=== PATIENT | female | born 1930 | race Caucasian/White ===

== ENCOUNTER 2017-06-30 12:34 | Inpatient (IN) | payer MEDICARE, BC, OTHER ==
[~2017-06-30] VITALS: Ht 152.4 cm; Wt 48.1 kg
[2017-06-30 12:36] VITALS: BP 128/56
--- NOTE | 2017-06-30 12:43 | NUR ---
UPON ARRIVAL, PT SLEEPING. ABLE TO AROUSE BUT PT IMMEDIATELY FALLS BACK TO SLEEP. VITAL SIGNS STABLE.
[2017-06-30 13:12] LABS: URINE COLOR YELLOW
[2017-06-30] MEDS ORDERED: TYLENOL325 MG PER TUBE (13:13)
[2017-06-30 13:22] LABS: HEMOGLOBIN 10.7 gm/dL (12.0-15.0); MCH 28.8 pg (26.0-34.0); MCHC 33.5 g/dL (28.0-37.0); MPV 9.3 fl. (7.2-11.1); NUCLEATED RBCS 0 /100WBC; PLATELET COUNT* 190 thou/uL (150-400); RBC 3.72 mil/uL (4.20-5.00); RDW-CV 19.5 % (10.5-14.5)
[2017-06-30 13:31] LABS: URINE BILIRUBIN NEGATIVE (Negative); URINE BLOOD 2+ (Negative); URINE CLARITY CLOUDY; URINE GLUCOSE-RANDOM NEGATIVE (Negative); URINE KETONES TRACE (Negative); URINE PROTEIN 2+ (Negative); URINE UROBILINOGEN 0.2 E.U./dl (0.2-1.0)
[2017-06-30 13:33] LABS: URINE LEUKOCYTES-REFLEX 3+ (Negative); URINE NITRITE-REFLEX POSITIVE (Negative)
[2017-06-30 13:34] LABS: CALCIUM 8.6 mg/dL (8.5-10.1); CREATININE 0.8 mg/dL (0.6-1.3); POTASSIUM 3.9 mmol/L (3.5-5.1)
[2017-06-30 13:38] LABS: SQUAMOUS 0-3 Few /LPF (0-3); URINE WBC-REFLEX >25 Many /HPF (0-5); WBC CLUMPS Moderate (None Seen)
[2017-06-30 13:39] LABS: AMORPHOUS PHOSPHATES Moderate /LPF (None Seen); CASTS None Seen /LPF (None Seen); MUCUS None Seen strn/LPF (None Seen)
[2017-06-30 13:50] LABS: ALBUMIN 2.7 g/dL (3.4-5.0); TOTAL BILIRUBIN 0.5 mg/dL (<0.1-1.0); TOTAL PROTEIN 5.7 g/dL (6.4-8.2)
[2017-06-30 14:14] LABS: ABSOLUTE BASOPHILS 0.1 thou/uL (0.0-0.2); ABSOLUTE EOSINOPHILS 0.2 thou/uL (0.0-0.7); ABSOLUTE LYMPHOCYTES 0.5 thou/uL (0.8-5.3); ABSOLUTE MONOCYTES 0.8 thou/uL (0.0-1.2); ABSOLUTE NEUTROPHILS 7.4 thou/uL (1.6-8.1)
[2017-06-30 14:15] LABS: ANISOCYTOSIS 1+; HYPOCHROMASIA Occasional; PLATELET ESTIMATE ADEQUATE
[2017-06-30] MEDS ORDERED: FLUSH FLUSH (15:39)
[2017-06-30] MEDS ORDERED: GLUCERNA237 M1 PO (15:39)
[2017-06-30] MEDS ORDERED: CLARITIN10 MG PER TUBE (15:40)
[2017-06-30] MEDS ORDERED: MELATONIN1 MG PER TUBE (15:40)
[2017-06-30] MEDS ORDERED: COLACE100 MG PER TUBE (15:40)
[2017-06-30] MEDS ORDERED: SYNTHROID50 MCG PER TUBE (15:40)
[2017-06-30] MEDS ORDERED: LIORESAL 10 MG10 MG PER TUBE (15:41)
[2017-06-30] MEDS ORDERED: VIMPAT100 MG PER TUBE (15:41)
[2017-06-30] MEDS ORDERED: ATORVASTATIN CA40 MG PER TUBE (15:41)
[2017-06-30] MEDS ORDERED: SENNA8.6 MG PER TUBE (15:41)
[2017-06-30] MEDS ORDERED: PEPCID20 MG PO (15:41)
[2017-06-30] MEDS ORDERED: KEPPRA 500 MG500 M1 PER TUBE (15:42)
[2017-06-30] MEDS ORDERED: DUONEB 2.5-0.5 M3 ML INH (15:42)
[2017-06-30] MEDS ORDERED: ATIVAN0.5 MG PER TUBE (15:42)
[2017-06-30] MEDS ORDERED: COREG6.25 MG PER TUBE (15:42)
[2017-06-30] MEDS ORDERED: ENSURE ACTIVE237 ML PO (15:43)
--- NOTE | 2017-06-30 16:45 | EKG ---
[place] [address] ELECTROCARDIOGRAM REPORT Name: ARGENIS FALLON Room: [facility]#: [id number] Admission: 06/30/17 Attend Phys: Discharge: Date of : [birth year] Report #: [id number] THIS REPORT FOR: //name// [facility] ED Test Date: 2017-06-30 Test Time: 12:35:58 Pat Name: ARGENIS FALLON Department: Room: Gender: F Engagement Executive: SHYAM : 1930 Requested By: Brandon Reddy Order Number: [id number] MD: Deandre Tarango Measurements Intervals [place] Rate: 59 P: 14 WV: 171 QRS: -14 QRSD: 84 T: 14 QT: 443 QTc: 439 Interpretive Statements Sinus rhythm Abnormal R-wave progression, early transition LVH by voltage No previous ECG available for comparison Electronically Signed On 06-30-2017 16:45:19 FOURDRINIER MACHINE TENDER by Deandre Tarango [email or web address] <ELECTRONICALLY SIGNED> By: Deandre Tarango MD, [facility] 06/30/17 1645 1235 1235 Deandre Tarango MD, FACC /EPI
[2017-06-30 17:18] VITALS: BP 166/59
[2017-06-30 17:47] VITALS: BP 112/79
--- NOTE | 2017-06-30 18:43 | NUR ---
PT NOTED TO ARRIVE TO ROOM 212 @ 1747 VIA CART- ASSISTANCE REQUIRED X2 TO BED WITH SOFT RESTRAITS NOTED IN PLACE- REPORT RECIVED VIA BED SIDE FROM JAZMINE CHAVEZ IN ER- DX; METABOLIC ENCEPHALOPATHY, UTI- PT NOTED TO BE MOANING UNCOMPREHENSIVE WORDS- RESTLESS NOTED TO BE PULLING AM BANDS- PT UN ABLE TO REDIRECT- IV NOTED TO LEFT FA INTACT WITH SLIGHT BLEEDING NOTED, FLUSHING WELL WITH NS INFUSING PRESCIBED- IV REINFORCED AND WRAPPED WITH CO-BAN- BED REST IN PLACE WITH Q 2HOUR TURNS INTIATED- VS 99.2 18 112/79 93 98% ON RA- ABDOMEN SOFT/ROUND/NON-TENDER, BS ACTIVE- LLQ PEG TUBE NOTED WITH CRUSHY DRAINAGE, AREA CLEANED WITH WW, NEW 4X4 APPLIED- TRACE EDEMA NOTED TO BLE, PERIPHERAL PULSES INTACT- SUPERVISOR POWDERED SUGAR PLACED INDICATED, TRACING SR IN 70'S- CALL LIGHT AND PERSONAL BELONGINGS WITH IN REACH-BED LOCKED IN LOWEST POSITION, BED ALARM IN PLACE AND WORKING FOR PT SAFETY- HOURLY ROUNDS IN PLACE R/T SAFETY/NEEDS- ALL NEEDS MET AT THIS TIME-NANCY
[2017-06-30 20:00] VITALS: BP 188/62
--- NOTE | 2017-06-30 23:00 | NUR ---
ASSESSMENT AND VITALS COMPLETED CHARTED, VSS. BELT CLEANER IN PLACE TRACING SR. PATIENT ON ROOM AIR WITH SATS 94%. PATIENT IS DISORIENTED AND IMPULSIVE. SOFT WRIST RESTRAINTS IN PLACE PER ORDERS. PATIENT IS IN NO APPARENT PAIN. DANIELSON IN PLACE. IVF INFUSING PER ORDERS. GOAL IS TO HAVE IMPROVEMENT IN ORIENTATION AND BE ABLE TO MANAGE BEHAVIOR WITH PRN MEDICATION. CALL LIGHT WITHIN REACH
[2017-06-30 23:52] VITALS: BP 154/38
[2017-07-01 04:20] VITALS: BP 132/42
[2017-07-01 04:55] LABS: ABSOLUTE EOSINOPHILS 0.3 thou/uL (0.0-0.7); ABSOLUTE LYMPHOCYTES 0.7 thou/uL (0.8-5.3); ABSOLUTE MONOCYTES 0.7 thou/uL (0.0-1.2); ABSOLUTE NEUTROPHILS 3.6 thou/uL (1.6-8.1); BASOPHILS 0.9 %; EOSINOPHILS 6.1 %; HEMATOCRIT 30.3 % (37.0-47.0); LYMPHOCYTES 12.9 %; MCHC 33.1 g/dL (28.0-37.0); MCV 87.6 fL (80.0-100.0); MONOCYTES 12.7 %; MPV 10.2 fl. (7.2-11.1); NUCLEATED RBCS 0 /100WBC; PLATELET COUNT* 153 thou/uL (150-400); POLYS 67.4 %; RBC 3.46 mil/uL (4.20-5.00); RDW-CV 19.7 % (10.5-14.5); WBC 5.3 thou/uL (4.0-11.0)
[2017-07-01 04:57] LABS: CALCIUM 7.7 mg/dL (8.5-10.1); CREATININE 0.8 mg/dL (0.6-1.3); MAGNESIUM 1.5 mg/dL (1.8-2.4); POTASSIUM 3.3 mmol/L (3.5-5.1)
--- NOTE | 2017-07-01 05:08 | NUR ---
PATIENT NOT PROGRESSING TOWARDS GOALS: PATIENT REMAINS DISORIENTED AND IMPULSIVE. UPON RESTRAINT REMOVAL FOR SKIN CHECKS, PATIENT IMMEDIATELY BEGAN TRYING TO PULL AT IV, PEG TUBE, AND DANIELSON. SKIN CHECKS COMPLETED Q2H, SKIN REMAINS INTACT. HOURLY ROUNDING OBSERVED. CALL LIGHT WITHIN REACH
[2017-07-01 05:15] LABS: PREALBUMIN 18.1 mg/dL (18.0-35.7)
[2017-07-01 08:10] VITALS: BP 161/49
--- NOTE | 2017-07-01 10:12 | NUR ---
ASSUMED CARE OF PT THIS AM AROUND 0715- INTENSIVIST IN PLACE ORDERED, TRACING SR- UPON ASSESSMENT PT NOTED TO BE RESTING IN BED, EYES CLOSED- ALERT TO SELF, WITH NOTED CONFUSION- BED REST IN PLACE, Q 2 HOUR TURNS- INCONTINENT OF BOWEL, DANIELSON IN PLACE D/D CLEAR YELLOW URINE- COURSE LUNG SOUNDS NOTED, RESP EVEN AND UN-LABORED- VSS, O2 SAT 94% ON RA- ABDOMEN SOFT/ROUND/NON-TENDER, BS ACTIVE-BM NOTED THIS AM- PEG TUBE NOTED ADN PATENT- FLUSHING WELL, 10CC INJECTED PER PLACEMENT POSITIVE; NO RESIDUL NOTED- CONTINIOUS FEEDING STOPPED THIS AM AROUND 0900- MEDS PER PEG TUBE INDICATED THIS AM- LOW GRADE FEVER OF 100.4 PER AUX NOTED, PRN TYLENOL GIVEN AT 0909- TEMP NOTED AT 1010 TO BE 99.6- K+ THIS AM NOTED AT 3.3, AND MG AT 1.5- ELECTROLYE PROTOCOL INTACTED PER WITH ADMINISTRATION TO FOLLOW THIS AM- AT SIDE THIS AM- PT NOTED TO BE MORE CALM THIS AM, NO NEED FOR WRIST RESTRAINTS AT THIS TIME- CALL LIGHT AND PERSONAL BELONGINGS WITH N REACH- BED ALARM IN PLACE AND WORKING FOR PT SAFETY- HOURLY ROUNDS IN PLACE R/T SAFETY/NEEDS- ALL NEEDS MET AT THIS TIME-WCTM
[2017-07-01 12:14] VITALS: BP 123/44
[2017-07-01 13:11] VITALS: BP 85/59
--- NOTE | 2017-07-01 15:26 | NUR ---
CM ASSESSMENT: Spoke with Pt's at bedside. Pt resides at [facility] and goal is for Pt to return there once medically stable. Per , Pt is [facility] bound and staff assist with most ADLs. Spoke with Pernell at [facility], Pt is able to return. Following.
[2017-07-01 16:00] VITALS: BP 140/46
--- NOTE | 2017-07-01 18:13 | NUR ---
PT CURRENTLY RESTING IN BED, DAUGHTER AND GRANDDAUGHTER AT SIDE VISITING- IV TO LEFT FA INTACT WITH IVF INFUSING ORDERED- IV ABT GIVEN PRESCIBED THIS SHIFT- 50% NOTED AT MEALS THIS SHIFT WITH FEEDING ASSISTANCE- FLUSHES GIVEN PRESCIBED, NOTED POSITIVE PEG PLACEMENT WITH FLUSHED AND MED ADMINISTRATION- CONTINUIOUS TF SET UP AT 1800 PRESCIBED AT RATE OF 45ML/HR- MG REPLACED PER IV X1 WITH REDRAW NOTED AT 2.3- K+ REPLACED PER PROTOCOL THIS SHIFT WITH REDRAW PENDING AT THIS TIME- [address] INDICATED- NO PAIN NOTED- CALL LIGHT AND PERSONAL BELONGINGS WITH IN REACH- BED ALARM INPLACE AND WORKING FOR PT SAFETY- ALL NEEDS MET AT THIS TIME-WCTM
[2017-07-01 20:00] VITALS: BP 154/55
--- NOTE | 2017-07-01 22:00 | NUR ---
ASSESSMENT AND VITALS COMPLETED CHARTED, VSS. PAPER CUP MACHINE OPERATOR IN PLACE TRACING SR. PATIENT ALERT, ORIENTED X2. PATIENT PRIMARILY SPEAKS SERBIAN BUT IS ABLE TO COMMUNICATE SOME THINGS IN PERSIAN. PATIENT DENIES PAIN AND DISCOMFORT. GOAL IS TO REST COMFORTABLY THIS SHIFT WITH NO EPISODES OF IMPULSIVENESS. CALL LIGHT WITHIN REACH
[2017-07-02] VITALS (7 sets, daily range): BP systolic 120–197; BP diastolic 37–66
--- NOTE | 2017-07-02 05:24 | NUR ---
PATIENT PROGRESSING TOWARDS GOALS: PATIENT RESTED WELL THIS SHIFT WITH NO C/O PAIN OR DISCOMFORT. PATIENT HAS NOT BEEN IMPULSIVE THIS SHIFT. TUBE FEEDING INFUSING PER ORDERS, WELL IVF. CDIFF SAMPLE SENT TO LAB FOR MULTIPLE LIQUID STOOLS THIS SHIFT. HOURLY ROUNDING OBSERVED. CALL LIGHT WITHIN REACH
[2017-07-02 05:30] LABS: HEMOGLOBIN 10.5 gm/dL (12.0-15.0); MCHC 32.9 g/dL (28.0-37.0); MCV 88.2 fL (80.0-100.0); MPV 9.8 fl. (7.2-11.1); NUCLEATED RBCS 0 /100WBC; PLATELET COUNT* 140 thou/uL (150-400); RBC 3.63 mil/uL (4.20-5.00); RDW-CV 19.5 % (10.5-14.5); WBC 5.6 thou/uL (4.0-11.0)
[2017-07-02 05:56] LABS: ALBUMIN 2.2 g/dL (3.4-5.0); CALCIUM 7.6 mg/dL (8.5-10.1); CREATININE 0.6 mg/dL (0.6-1.3); POTASSIUM 4.1 mmol/L (3.5-5.1); TOTAL BILIRUBIN 0.2 mg/dL (<0.1-1.0); TOTAL PROTEIN 5.6 g/dL (6.4-8.2)
[2017-07-02 06:36] LABS: ABSOLUTE BASOPHILS 0.1 thou/uL (0.0-0.2); ABSOLUTE EOSINOPHILS 0.8 thou/uL (0.0-0.7); ABSOLUTE LYMPHOCYTES 0.6 thou/uL (0.8-5.3); ABSOLUTE MONOCYTES 0.4 thou/uL (0.0-1.2); ABSOLUTE NEUTROPHILS 3.7 thou/uL (1.6-8.1); ATYPICAL LYMPHS 1 %; METAMYELOCYTES 1 %; PLATELET ESTIMATE ADEQUATE
--- NOTE | 2017-07-02 15:05 | NUR ---
ASSUMED CARE OF PT AT 073. PT CONTINUES TO BE ALERT AND ORIENTED TO SELF. SHE RECOGNIZES FAMILY AND HER SPOUSE. PT DENIES ANY C/O PAIN OR DISTRESS, VSS, AND TRACING NSR ON THE MONITOR. PT HAS BEEN IRRITABLE A FEW TIMES TO DAY AND HAS REMOVED HER [employer] DEVELOPER MULTIPLE TIMES TODAY. PT HAS A POOR APPETITE AND HAS ATE LESS THAN 50% OF ALL MEALS THUS FAR TODAY. NURSING WILL CONTINUE TO MONITOR.
--- NOTE | 2017-07-02 15:54 | NUR ---
O.T. TEOFILO RECIEVED AND CHART REVIEWED. UNABLE TO TALK WITH LTC STAFF BUT ABLE TO TALK WITH SPOUSE, KEILA. PT. NEEDS HELP PRN FOR FEEDING AND IS DEPENDENT FOR THE REST OF ADLS. PER SPOUSE, PT. IS UNABLE TO STAND AND THE NURSES DO PIVOT TRANSFERS WITH THE PT. HE SAYS THEY HAVE NEVER HAD TO USE A LIFT SINCE SHE IS SMALL. O.T. SERVICES ARE NOT INDICATED AT THIS TIME.
--- NOTE | 2017-07-02 19:06 | EEG ---
[address] [address] EEG STUDY REPORT Name: ARGENIS FALLON Room: [address] IN M.R.#: [id number] Admission: 06/30/17 Attend Phys: Jaren Vargas MD Discharge: Date of : [birth year] Report #: [id number] THIS REPORT FOR: //name// CC: Jaren Banks DATE OF SERVICE: 07/02/2017 This patient is being evaluated for altered mental status. EEG was done by placing the electrodes by standard 10-20 system of electrode placement. Both referential and sequential montages were used for recording. Background activity in this patient's EEG is about 8 Hz and 30 microvolt. The patient goes to sleep that is associated with bilateral slowing and vertex sharp waves. Throughout the record, no active epileptiform activity was noticed. IMPRESSION: This patient's EEG demonstrates some intermixed theta range slowing on both sides. That is a nonspecific finding which can occur with encephalopathy, effect of psychotropic medication, dementia, etc. Clinical correlation is recommended. Thank you very much for this referral. <ELECTRONICALLY SIGNED> By: Abel Romero MD 07/02/17 1906 1555 [id number] Romero MD /nt
--- NOTE | 2017-07-02 19:06 | CON ---
[address] [address] CONSULTATION Name: ARGENIS FALLON Room: [address] ADM IN M.R.#: [id number] Admission: 06/30/17 Attend Phys: Jaren Vargas MD Discharge: Date of : [birth year] Report #: [id number] THIS REPORT FOR: //name// CC: Jaren Banks DATE OF SERVICE: 07/01/2017 HISTORY OF PRESENT ILLNESS: This is an 86-year-old female patient who was evaluated by me for altered mental status. The patient is unable to provide any history. 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 I do not have any records from there, but I am sure they checked brain as well as C-spine because she underwent a brain surgery according to the for what he described as some blood clot. I do not know which hematoma it was. She did have a seizure at that time and they put her on Keppra and left her on Keppra. Her memory is very poor now and whenever she has bladder infection her blood pressure drops and she becomes confused. That is what happened this time and the patient was brought to the hospital. REVIEW OF SYSTEMS: Indicate that this patient appeared to have severe cognitive impairment. This is her baseline. These symptoms become worse when the patient has UTI and at this time, she did have a UTI as per history. I carried out 14-point review of systems from the records as well as from the patient's 's it looks like this patient has pretty significant cognitive impairment as well as seizure disorder. She does not walk, but she does move her legs. From all indication it looks like her quality of life is extremely poor. This was her relevant 14-point review of systems. PAST MEDICAL HISTORY: Positive for what looks like hematoma of the brain, which was surgically resected as well as seizures secondary to that. FAMILY HISTORY: Negative for early age stroke. SOCIAL HISTORY: This patient lives in a half-way. PHYSICAL EXAMINATION: Pretty limited. She opens her eyes. She did not say a single word during examination. I cannot tell about memory and fund of knowledge, but looks very impaired. Cranial nerves examination 2-12 was attempted. The patient will not cooperate at all. I cannot tell about any focality. It looks like she can move all 4 extremities, but she does very little of that. Her reflexes are symmetrical. There is no meningeal sign. She is moderately built individual and I cannot tell about hearing or vision. She has no thyroid mass. Cardiac examination is unremarkable. Respiratory examination does not appear to be showing any respiratory [place] [address] CONSULTATION Name: ARGENIS FALLON Room: [address] IN .R.#: [id number] Admission: 06/30/17 Attend Phys: Jaren Vargas MD Discharge: Date of : [birth year] Report #: [id number] Blood pressure is 123/44, respirations 17, pulse is 62, temperature is 99.5. LABORATORY DATA: Multiple lab abnormalities were noticed especially on the urinalysis. She did have a CT scan, which demonstrated encephalomalacia at multiple locations. IMPRESSION: 1. Status post head injury. 2. Dementia. 3. Seizure disorder. 4. Very poor quality of life with the workup done at [facility]. RECOMMENDATIONS: I discussed with the patient's the situation and I think a very conservative care is desired in this patient. I will do an EEG. Until EEG shows some active seizure activity or any overriding finding, I will suggest very conservative care in this patient. Thank you very much for this referral. <ELECTRONICALLY SIGNED> By: Abel Romero MD 07/02/17 1906 1407 Abel Romero MD /nt
--- NOTE | 2017-07-02 22:50 | NUR ---
ASSESSMENT AND VITALS COMPLETED CHARTED, VSS. BICYCLE TECHNICIAN IN PLACE TRACING SR. PATIENT ON ROOM AIR WITH SATS 97%. PATIENT DENIES PAIN AND DISCOMFORT. TUBE FEEDING INFUSING PER ORDERS. CDIFF RESULTS REVIEWED, ISOLATION DC'D. CALL LIGHT WITHIN REACH
[2017-07-03] VITALS: BP 139/38
[2017-07-03 04:07] VITALS: BP 156/87
--- NOTE | 2017-07-03 06:55 | NUR ---
PATIENT PROGRESSING TOWARDS GOALS: PATIENT SOUNDS LESS COARSE THIS AM AND ONLY HAD TWO EPISODES OF INCONTINENT DIARRHEA. PATIENT REPOSITIONED Q2H. BARRIER CREAM APPLIED WITH RADHA CARE. VSS. HOURLY ROUNDING OSBERVED. CALL LIGHT WITHIN REACH
[2017-07-03 08:00] VITALS: BP 184/86
--- NOTE | 2017-07-03 09:00 | NUR ---
RECEIVED REPORT. ASSUMED CARE AT 0730. PT ALERT AND ORIENTED TO SELF ONLY. VSS. O2 SAT 97% ON ROOM AIR. CABLE CUTTER AND SWAGER IN PLACE TRACING SR. AM ASSESSMENT AND VITALS COMPLETED CHARTED. IV SALINE LOCKED. PT DENIES PAIN AT THIS TIME, STATING "I'M FINE". DANIELSON DRAINING LIGHT YELLOW URINE. AT BEDSIDE. ASSISTED PT TO EAT BREAKFAST THIS MORNING, PT ATE AROUND 75%. PT INFORMED OF PLAN OF CARE; UNABLE TO COMMUNICATE UNDERSTANDING, NEEDS REINFORCEMENT. PT TURNED Q2HRS FOR COMFORT. PEG TUBE IN PLACE - PT TOLERATED NIGHT-TIME TUBE FEED WITHOUT ISSUE PER NOC NURSE. BED ALARM IS ON. CALL LIGHT IS WITHIN REACH. WILL CONTINUE TO MONITOR.
--- NOTE | 2017-07-03 11:41 | NUR ---
Pt to dc back to [facility] today, ambulance to pick and shovel worker at 4pm. Faxed dc orders. Chart copied. Nurse report number provided, . [place].
[2017-07-03 12:00] VITALS: BP 122/66
[2017-07-03 15:14] VITALS: BP 122/66
[2017-07-03] MEDS ORDERED: CEFUROXIME500 MG PO (15:28)
--- NOTE | 2017-07-03 16:24 | NUR ---
DISCHARGE ORDERS RECEIVED. DISCHARGE COMPLETED CHARTED. PT TO RETURN TO [facility]. DISCHARGE SUMMARY PLACED IN PACKET FOR FACILITY. REPORT CALLED, SPOKE TO JAZMIN. VSS AT TIME OF DC. O2 SAT >90% ON ROOM AIR. PT REMAINS ORIENTED TO SELF AND ALERT. FOELY REMOVED; BASEBALL PLAYER REMOVED. IV REMOVED. PT HAD INCONTINENT EPISODE OF STOOL X2 THIS SHIFT. PT WORKED WITH ST AND PT THIS AM. PT ABLE TO SIT UP IN BEDSIDE CHAIR WITH ASSISTANCE X2 . HAS REMAINED AT BEDSIDE. SKIN IS INTACT. PT TURNED Q2HRS FOR COMFORT. SUPPLEMENTAL TUBE FEED ADMINISTERED AFTER LUNCH - PT REFUSED TO EAT ANY OF HER PUREED MEAL. ALL BELONGINGS GATHERED AND SENT WITH THE PT. PT LEFT UNIT IN CART WITH TRANSPORTERS. PT LEFT FACILITY IN AMBULANCE.
== END 2017-07-03 16:14 | DRG 70 ==
LOC: M.ERS 12:34 → M.TBA-ER 14:15 → M.2W 14:15
PROVIDERS: Emergency Medicine Emergency Medical Services; ADMIT Internal Medicine
DX: G93.41 Metabolic encephalopathy (principal); R65.11 Systemic inflammatory response syndrome (SIRS) of non-infectious origin with acute organ dysfunction; N39.0 Urinary tract infection, site not specified; E44.0 Moderate protein-calorie malnutrition; E86.0 Dehydration; F03.90 Unspecified dementia, unspecified severity, without behavioral disturbance, psychotic disturbance, mood disturbance, and anxiety; G40.909 Epilepsy, unspecified, not intractable, without status epilepticus; D64.9 Anemia, unspecified; B96.20 Unspecified Escherichia coli [E. coli] as the cause of diseases classified elsewhere; I10 Essential (primary) hypertension; Z87.820 Personal history of traumatic brain injury; Z79.899 Other long term (current) drug therapy; Z88.2 Allergy status to sulfonamides; Z88.8 Allergy status to other drugs, medicaments and biological substances; Z88.5 Allergy status to narcotic agent; Z88.1 Allergy status to other antibiotic agents